=== PATIENT | female | born 1970 | race Caucasian/White ===

== ENCOUNTER 2016-11-20 10:06 | Outpatient (CLI) | payer OTHER | END 2016-11-20 10:07 | disposition home or self-care (01) | DX: E03.8 Other specified hypothyroidism (principal) ==

== ENCOUNTER 2017-07-04 07:15 | Outpatient (CLI) | payer OTHER ==
[2017-07-04 08:46] LABS: THYROID STIMULATING HORMONE 1.22 uIU/mL (0.34-5.60)
== END 2017-07-04 07:16 | disposition home or self-care (01) ==
LOC: LAB 07:15
PROVIDERS: ATTEND Obstetrics & Gynecology
DX: E00.9 Congenital iodine-deficiency syndrome, unspecified (principal)
CPT/HCPCS: 36415; 84439; 84443; 84481

== ENCOUNTER 2018-01-07 11:36 | Outpatient (CLI) | payer OTHER ==
[2018-01-07 13:12] LABS: THYROID STIMULATING HORMONE 1.41 uIU/mL (0.34-5.60)
[2018-01-07 13:15] LABS: FREE T4 (FREE THYROXINE) 0.91 ng/dL (0.58-1.64)
== END 2018-01-07 11:37 | disposition home or self-care (01) ==
LOC: LAB 11:36
PROVIDERS: ATTEND Obstetrics & Gynecology
DX: E00.9 Congenital iodine-deficiency syndrome, unspecified (principal)
CPT/HCPCS: 36415; 84439; 84443; 84481

== ENCOUNTER 2018-07-26 21:11 | Outpatient (CLI) | payer OTHER | END 2018-07-26 21:12 | disposition EMS.NT | LOC: EMS 21:11 | PROVIDERS: ATTEND Surgery | DX: R06.02 Shortness of breath (principal) ==

== ENCOUNTER 2018-10-29 12:09 | Outpatient (CLI) | payer BC ==
[2018-10-29 13:04] LABS: T4 (THYROXINE) 6.83 ug/dL (6.09-12.23)
[2018-10-29 13:07] LABS: THYROID STIMULATING HORMONE 0.67 uIU/mL (0.34-5.60)
[2018-10-29 13:09] LABS: FREE T4 (FREE THYROXINE) 0.91 ng/dL (0.58-1.64)
[2018-10-29 13:14] LABS: TOTAL T3 1.19 ng/mL (0.87-1.78)
== END 2018-10-29 12:10 | disposition home or self-care (01) ==
LOC: LAB 12:09
PROVIDERS: ATTEND Nurse Practitioner Obstetrics & Gynecology
DX: E03.9 Hypothyroidism, unspecified (principal)
CPT/HCPCS: 36415; 82542; 84436; 84439; 84443; 84480; 84481; 84482; 86376

== ENCOUNTER 2019-01-16 08:19 | Outpatient (CLI) | payer BC ==
[2019-01-16 09:08] LABS: ALBUMIN 4.1 g/dL (3.2-5.5); ALBUMIN/GLOBULIN RATIO 1.2 (1.0-2.2); BILIRUBIN,TOTAL 0.5 mg/dL (0.2-1.0); CREATININE 0.7 mg/dL (0.4-1.0); TOTAL PROTEIN 7.4 g/dL (6.7-8.2)
[2019-01-16 10:29] LABS: THYROID STIMULATING HORMONE 0.17 uIU/mL (0.34-5.60)
[2019-01-16 10:31] LABS: FREE T4 (FREE THYROXINE) 1.03 ng/dL (0.58-1.64)
== END 2019-01-16 08:20 | disposition home or self-care (01) ==
LOC: LAB 08:19
DX: E03.8 Other specified hypothyroidism (principal); E06.3 Autoimmune thyroiditis
CPT/HCPCS: 36415; 80053; 82533; 84439; 84443; 84481; 86376; 86800

== ENCOUNTER 2021-05-02 13:22 | Outpatient (CLI) | payer OTHER ==
[2021-05-02 14:13] LABS: THYROID STIMULATING HORMONE 0.54 uIU/mL (0.34-5.60)
[2021-05-02 14:15] LABS: FREE T4 (FREE THYROXINE) 0.83 ng/dL (0.58-1.64)
== END 2021-05-02 13:23 | disposition home or self-care (01) ==
LOC: LAB 13:22
PROVIDERS: ATTEND Internal Medicine
DX: E03.8 Other specified hypothyroidism (principal); E06.3 Autoimmune thyroiditis
CPT/HCPCS: 36415; 84439; 84443